=== PATIENT | female | born 1960 | race Caucasian/White ===

== ENCOUNTER 2016-12-25 17:49 | Inpatient (IN) ==
[2016-12-25] MEDS ORDERED: LOVENOX SUBQ SCH (23:30)
[2016-12-26] MEDS ORDERED: NARCAN IV PRN (00:27)
[2016-12-26] MEDS ORDERED: MORPHINE IV PRN (01:49)
--- NOTE | 2016-12-26 03:33 | HISTORY AND PHYSICAL ---
NO DICTATION cc: Kenya Espinoza MD Please refer to the other H&P dictated on the same day MTDD
--- NOTE | 2016-12-26 04:05 | HISTORY AND PHYSICAL ---
CHIEF COMPLAINT: Accidental opiate overdose. HISTORY OF PRESENT ILLNESS: Ms. Nascimento is a 56-year-old female with past medical history of coronary artery disease, myofascial chronic back pain, depression, hyperlipidemia, hypertension, noninsulin dependent diabetes mellitus, hypothyroidism, anxiety, who comes to the hospital complaining of accidental overdose. The patient was initially transferred from [facility]. Per [place] medical records, family stated that the patient was found lethargic and barely breathing. EMS was called and the patient was transferred to [facility]. Initially the patient was found to have a fentanyl patch on. According to the family, she changed her fentanyl patch today. In the emergency room she was given about 1:30 p.m. IV Narcan 2 g. The patient responded to the dose of Narcan, however, the patient immediately developed severe pain, and she was given 8 mg of morphine and clonidine 0.2 mg p.o. By the time that the patient was transferred to [facility], she was alert and oriented. The patient states that she does not remember what happened. According to her, she denies using any extra opiate medications or possibly taking an extra dose of her home medications. REVIEW OF SYSTEMS: Review of systems was reviewed and it is negative except as stated above. PAST MEDICAL HISTORY: Coronary artery disease, chronic back pain, depression, hyperlipidemia, hypertension, noninsulin dependent diabetes mellitus, hypothyroidism, anxiety, GERD, MT x2, last one 5 years ago. PAST SURGICAL HISTORY: Stent placement x4 five years ago, hysterectomy. ALLERGIES: Sulfonamide antibiotics, unknown reaction. HOME MEDICATIONS: 1. Paroxetine 10 mg tablet oral once a day. 2. TriCor 145 mg oral once daily. 3. Metformin 1000 mg oral one tablet twice a day. 4. Lasix 20 mg oral p.r.n. 5. Hydrocodone/acetaminophen 7.5/325 mg tablet orally every 4-6 hours. 6. Olanzapine 10 mg tablet once a day. 7. Rosuvastatin 10 mg oral tablet daily. 8. Bystolic 5 mg oral tablet once a day. 9. Synthroid 75 mcg tablet oral daily. 10.Duloxetine 30 mg 1 capsule once a day. 11.Xanax 1 mg oral tablet daily. 12.Tizanidine 4 mg tablet oral every 8 hours. 13.Aspirin 325m g 1 tablet oral daily. 14.Vitamin B12 tablet oral daily. 15.Mylanta double strength 400/400/40 mg in 5 mL oral suspension. 16.Phenergan 25 mg tablet oral p.r.n. 17.Glipizide 10 mg 1 tablet oral daily. 18.Fentanyl patch 100 mcg per hour topical for 72 hours. FAMILY HISTORY: The patient's mother has diabetes. The patient had an MT. The patient's grandfather had unknown cancer. SOCIAL HISTORY: The patient has been smoking for the 10 years. In the last 6 years she switched to E cigarettes. The patient denies drinking alcohol or using illicit drugs. LABORATORY DATA: Initial labs with white blood cell count 6.7, hemoglobin 12.3, hematocrit 40.4, platelets 204. Sodium 143, potassium 4.3, BUN 14, creatinine 1.1, GFR 51. Urine toxicology positive for benzodiazepines, negative for opiates. IMAGING: Chest x-ray done at [facility] shows no acute pulmonary disease. ELECTROCARDIOGRAM: EKG shows normal sinus rhythm. PHYSICAL EXAMINATION: VITAL SIGNS: Pulse 60. Respirations 16. Blood pressure 92/65. Oxygen saturation 97% on room air. GENERAL: The patient is alert and oriented x3 in no acute distress. HEENT: Head is normocephalic, atraumatic. Eyes PERRL. EOMI. Dry mucous membranes. NECK: Supple. No JVD. LUNGS: Well ventilated bilaterally. No recent rales or crackles. CARDIOVASCULAR: S1, S2. A 2/5 left sternal border systolic murmur. No gallop. ABDOMEN: Soft, nondistended, nontender. EXTREMITIES: No lower extremity edema. NEUROLOGIC: Cranial nerves II through XII grossly intact. No focal deficits. PSYCH: Normal mood and affect. ASSESSMENT AND PLAN: 1. Toxic encephalopathy. This is likely secondary to an opioid overdose versus polypharmacy. The patient was already given p.r.n. Narcan in the emergency room. The patient has not required any further doses of Narcan. The patient has available Narcan if needed p.r.n. respiratory depression. At the moment we will hold any of her home medications that may result in worsening encephalopathy. 2. Chronic pain. As mentioned above, the patient uses fentanyl patch at home. In the meantime, we will control her pain with morphine p.r.n. to avoid pain and withdrawal symptoms. 3. Coronary artery disease. The patient is stable. EKG was normal. We will continue the patient's home medications, rosuvastatin, aspirin, and Bystolic 5 mg. 4. Hypertension. The patient's blood pressure is currently well controlled. We will continue home medications, Bystolic 5 mg tablet oral daily. 5. Diabetes type 2. We will continue the patient's home medications, metformin and glipizide 10 mg tablet daily. A1c is pending for tomorrow. 6. Hypothyroidism. We will continue the patient's home medication, levothyroxine 75 mcg tablet oral daily. 7. Anxiety and major depression. At the moment we will hold all of her psych medications including paroxetine, olanzapine, duloxetine, Xanax, and tizanidine. cc: Kenya Espinoza MD
[2016-12-26] MEDS ORDERED: SYNTHROID PO SCH (07:00)
[2016-12-26 08:00] LABS: AGAP 14; BUN 16 mg/dL (8-22); CALCIUM 9.3 mg/dL (8.8-10.2); CHLORIDE 96 mmol/L (98-107); COSMO 281; SODIUM 140 mmol/L (136-145); TCO2 30 mmol/L (25-35)
[2016-12-26] MEDS ORDERED: GLUCOPHAGE PO SCH (08:00)
[2016-12-26 08:12] LABS: MANUAL DIFF NEEDED? NO
[2016-12-26 08:19] LABS: HEMOGLOBIN A1C 5.2 % (4.8-6.0)
[2016-12-26 08:32] LABS: ALKALINE PHOSPHATASE 49 U/L (32-104); DIRECT BILIRUBIN < 0.20 mg/dL (0.00-0.20); GOT 35 U/L (10-30); GPT 17 U/L (10-36); MAGNESIUM 1.9 mg/dL (1.5-2.7); TOTAL BILIRUBIN 0.39 mg/dL (0.20-1.00); TOTAL PROTEIN 7.1 g/dL (6.3-8.3)
[2016-12-26] MEDS ORDERED: TRICOR PO SCH (09:00)
[2016-12-26] MEDS ORDERED: ASPIRIN EC PO SCH (09:00)
[2016-12-26] MEDS ORDERED: CRESTOR PO SCH (09:00)
[2016-12-26] MEDS ORDERED: BYSTOLIC PO SCH (09:00)
[2016-12-26] MEDS ORDERED: VITAMIN B-12 PO SCH (09:00)
[2016-12-26] MEDS ORDERED: GLUCOTROL PO SCH (09:00)
[2016-12-26 09:14] LABS: BASO% 0.4 % (0.0-0.8); EOS# 0.14 X1000 (0.0-0.7); EOS% 1.9 % (0.0-10.0); HEMATOCRIT 39.4 % (37.0-47.0); HEMOGLOBIN 12.7 g/dL (12.0-16.0); IMM GRAN# 0.03 X1000 (0.0-0.04); IMM GRAN% 0.4 % (0.0-0.5); LYMPH# 2.26 X1000 (1.2-3.4); MCH 29.1 PG (27-31); MCHC 32.2 g/dL (33-37); MCV 90.4 FL (81-99); MONO# 0.68 X1000 (0.11-0.59); MPV 11.2 FL (7.4-10.4); NEUT% 58.3 % (42.2-75.2); PLT 242 X1000 (130-400); RBC 4.36 XMIL (4.2-5.4)
--- NOTE | 2016-12-26 09:14 | Diag Imaging Result Doc PS360 ---
EXAM: CHEST-PORTABLE - 12/26/2016 HISTORY: obtunded TECHNIQUE: Portable chest 0900 COMPARISON: None. FINDINGS: Heart size is in the upper range of normal. There are sternal wires from previous surgery. The lungs appear clear. There is no pleural effusion or pneumothorax identified. IMPRESSION: No evidence of acute disease. Electronically signed by Juan Daniel Chang 12/26/2016 9:12 AM
--- NOTE | 2016-12-26 09:45 | PROGRESS NOTE ---
DATE: 12/26/2016 Patient admitted yesterday by Kenya Espinoza M.D. SUBJECTIVE: This is a 56-year-old with a past medical history of coronary artery disease, myofascial chronic back pain, depression, hyperlipidemia, hypertension, noninsulin-dependent diabetes mellitus, hypothyroidism, and anxiety who came in to the hospital complaining of accidental overdose. The patient was initially transferred from [facility]. Per [place] medical records, family stated that the patient was found lethargic and barely breathing. EMS called and patient was transferred to [facility]. Initially, the patient was found to have a fentanyl patch on. According to the family, she changed her fentanyl patch today. In the emergency room, she was given some Narcan about 1:30 p.m. 2 g. The patient responded to the dose of Narcan. However, the patient immediately developed severe pain and she was given 8 mg morphine and clonidine, they said 0.2, but I think 2 mg p.o. The patient was transferred to [facility]. She was alert and oriented. She states that she does not remember what happened. This morning she remember what happened. Last memory is waking up at [place] emergency room. She says her back does hurt her. PHYSICAL EXAMINATION: Vital signs: Temp 98 degrees. Pulse 57. Respirations 12. Blood pressure 105/65. HEENT: Pupils are equal. Lungs: Clear in all lung krishna. Cardiovascular: Regular rate without murmur or S3. Abdomen: Soft. Skin: Warm and dry. Intake and Output: Urine output was 1200 mL. LABORATORY AND X-RAY DATA: On review of lab on, I think that was from [facility]. I think we will check some more lab this morning. ASSESSMENT AND PLAN: 1. Toxic encephalopathy, opioid overdose, no suicidal intent, and probably some polypharmacy. She was given Narcan in the emergency room. She has a history of chronic pain, I believe, and depression. Breathing comfortably at this time. I think we can move her to the floor and put her on a regular diet. 2. Chronic pain. Uses fentanyl patch at home. We may need to make some adjustments. 3. Coronary artery disease. No sign of active coronary or cardiac ischemia at this time. 4. Hypertension. 5. History of diabetes mellitus type 2. We will follow pattern sugars. 6. History of hypothyroidism. 7. Continue her levothyroxine 75 mcg a day. 8. Anxiety and major depression, aware. REVIEW OF ORDERS: She is on Crestor 10 mg a day and Bystolic 5 mg a day. She gets the Narcan 0.4 IV p.r.n. She is getting morphine 2 mg IV q.4 hours p.r.n. Metformin 1000 mg b.i.d. Levothyroxine 75 mcg a day. Glucotrol 10 mg a day. TriCor 145 mg a day. Vitamin B12 at 1000 mg p.o. daily. Aspirin 325 mg a day. We will check some lab today and chest x-ray and hopefully move her to the floor. cc: Jayme Bach MD
[2016-12-26 11:14] VITALS: BP 123/69
--- NOTE | 2016-12-26 12:42 | DISCHARGE SUMMARY ---
ADMISSION DATE: 12/25/2016 DISCHARGE DATE: 12/26/2016 HISTORY OF PRESENT ILLNESS: The patient had an accidental opiate overdose. Ms. Nascimento is a 56- year-old female with a past medical history of coronary artery disease, myofascial chronic back pain, depression, hyperlipidemia, hypertension, [id number] diabetes mellitus, hypothyroidism, anxiety. She came to the hospital with a complaint of accidental overdose. The patient was transferred from [facility]. Per [place] medical records, it was stated the patient was found lethargic and barely breathing. EMS was called, and the patient was transferred to [facility]. Initially, the patient was found to have a fentanyl patch. According to the family, she changed her fentanyl patch yesterday, the day of admission. In the emergency room, she was given some IV Narcan about 1:30 p.m. The patient responded to the dose of Narcan. However, the patient immediately developed severe pain, and she was given 8 mg of morphine and clonidine 2 mg p.o. By that time, the patient was transferred to [facility] and was alert and oriented. She said she does not remember what happened. She was moved into the unit where she was stable, woke up, was eating well, and requesting to go home. She denied any suicidal ideation. HOSPITAL COURSE: 1. She was admitted with toxic encephalopathy, suspected overdose and polypharmacy. We did give instructions about her medications, making sure she gets followup with the primary care. 2. She has chronic pain syndrome. She uses a fentanyl patch. We were controlling some of her pain with morphine here. 3. She has a coronary artery disease history. Her EKG was normal, no sign of active ischemia. 4. Hypertension. Blood pressure well controlled. 5. Diabetes mellitus type 2. Sugars were a little high, were coming down, were looking good. Actually, she had 101 and 103, so sugars were basically normal. Initially, by report, they were reported to be high. 6. History of hypothyroidism. Will discharge her. DISCHARGE MEDICATIONS: She is on Xanax 1 mg p.o. q.6 h., aspirin 325 mg a day, Vitamin B12 1000 mg p.o. daily, Cymbalta 30 mg a day, TriCor 145 mg a day. She takes fentanyl patch, a 100 mcg patch every 72 hours, Lasix 20 mg p.o. p.r.n., glipizide 10 mg a day, hydrocodone 7.5 q. 4-6 h. p.r.n., Synthroid 75 mcg daily, Glucophage 1000 mg b.i.d., Bystolic 5 mg a day, olanzapine 10 mg daily, paroxetine 10 mg daily, Crestor 10 mg a day, and Zanaflex 4 mg t.i.d. I did have a discussion about I think this is a lot of medication, encouraged her to get with a primary care and whittle down, try and get rid of some of these medicines. cc: Jayme Bach MD
--- NOTE | 2016-12-28 06:46 | EKG Report ---
Test Performed on : 12/26/2016 11:49:43 AM Test Reason : CP Blood Pressure : / mmHG Vent. Rate : 066 BPM Atrial Rate : 066 BPM P-R Int : 194 ms QRS Dur : 128 ms QT Int : 468 ms P-R-T Axes : 067 035 112 degrees QTc Int : 490 ms Normal sinus rhythm. Nonspecific intraventricular block ST elevation, consider early repolarization, pericarditis, or injury T wave abnormality, consider lateral ischemia Abnormal ECG No previous ECGs available Confirmed by Jose L Davis DO ([id number]) on 12/28/2016 5:43:14 PM
== END 2016-12-26 13:34 | disposition home or self-care (01) ==
LOC: SUATTDRO 17:49 → DIRADM 17:49 → ICU 18:05 → 4N 12-26 10:35
PROVIDERS: ATTEND Emergency Medicine